=== PATIENT | female | born 1995 | race Caucasian/White ===

== ENCOUNTER 2025-03-09 16:40 | Emergency (ER) | payer MEDICAID, OTHER ==
[~2025-03-09] VITALS: Ht 165.1 cm; Wt 63.5 kg
[2025-03-09 18:06] LABS: PREGNANCY TEST URINE QUAL NEGATIVE (NEGATIVE)
[2025-03-09] MEDS ORDERED: PANTOPRAZOLE 40 MG VIAL ONE (18:12)
[2025-03-09] MEDS ORDERED: MAG HYDROX/AL HYDROX/SIMETH 30 ML UDC ONE (18:12)
[2025-03-09] MEDS ORDERED: ONDANSETRON HCL/PF 4 MG/2 ML VIAL ONE (18:12)
[2025-03-09] MEDS: ONDANSETRON HCL/PF - ER 4 MG/2 ML VIAL IV ONE (18:16)
[2025-03-09] MEDS: PANTOPRAZOLE 40 MG VIAL IV ONE (18:17)
[2025-03-09] MEDS: MAG HYDROX/AL HYDROX/SIMETH 30 ML UDC PO ONE (18:17)
[2025-03-09] MEDS: LIDOCAINE VISCOUS 2% UD 15 ML UDC MM ONE (18:18)
[2025-03-09 18:25] LABS: PLATELET COUNT (AUTO) 315 K/uL (150-450); RED BLOOD CELL COUNT(AUTO) 4.79 MIL/uL (4.0-5.2); RED CELL DISTRIBUTION WIDTH 13.3 % (11.5-15.0); WHITE BLOOD COUNT (AUTO) 8.4 K/uL (4.3-11.0)
[2025-03-09 18:33] LABS: CALCIUM, SERUM 9.0 mg/dL (8.5-10.1); CREATININE 0.8 mg/dL (0.6-1.3); SODIUM SERUM 140 mmol/L (136-145); UREA NITROGEN, BLOOD 8 mg/dL (7-18)
[2025-03-09 18:46] LABS: NT-PRO BNP 24 pg/mL (0-125)
[2025-03-09] MEDS ORDERED: PANT40TA2 PO (19:16)
[2025-03-09] MEDS ORDERED: FAMO20TA80 PO (19:16)
[2025-03-09 19:35] VITALS: BP 141/83; TEMP 98.1; O2SAT 96
== END 2025-03-09 19:36 | disposition home or self-care (01) ==
LOC: ER 16:46
DX: R07.89 Other chest pain (principal); R06.02 Shortness of breath; R11.0 Nausea
CPT/HCPCS: 99285; 96374; 71045; 96375; 93005; 85025; 80048; 85378; 84703; 36415; 84484; 83880; J2405 ×2; J2470

== ENCOUNTER 2025-03-30 19:34 | Emergency (ER) | payer OTHER ==
[~2025-03-30] VITALS: Ht 165.1 cm; Wt 66.2 kg
[~2025-03-30 19:34] MED LIST: FAMO20TA80 PO; PANT40TA2 PO
[2025-03-30] MEDS: KETOROLAC TROMETHAMINE 15 MG/ML VIAL IV ONE (21:00)
[2025-03-30] MEDS ORDERED: ONDANSETRON HCL/PF 4 MG/2 ML VIAL ONE (21:02)
[2025-03-30] MEDS ORDERED: ACETAMINOPHEN ES 500 MG TABLET ONE (21:02)
[2025-03-30] MEDS ORDERED: KETOROLAC TROMETHAMINE 15 MG/ML VIAL ONE (21:02)
[2025-03-30] MEDS ORDERED: LIDOCAINE VISCOUS 2% UD 15 ML UDC ONE (21:02)
[2025-03-30] MEDS ORDERED: MAG HYDROX/AL HYDROX/SIMETH 30 ML UDC ONE (21:02)
[2025-03-30] MEDS: IV NS 0.9% 1,000 ML BAG IV ONE (21:13)
[2025-03-30] MEDS: LIDOCAINE VISCOUS 2% UD 15 ML UDC MM ONE (21:14)
[2025-03-30] MEDS: MAG HYDROX/AL HYDROX/SIMETH 30 ML UDC PO ONE (21:14)
[2025-03-30] MEDS: ACETAMINOPHEN ES 500 MG TABLET PO ONE (21:14)
[2025-03-30] MEDS: ONDANSETRON HCL/PF 4 MG/2 ML VIAL IVP ONE (21:14)
[2025-03-30 21:19] LABS: PLATELET COUNT (AUTO) 289 K/uL (150-450); RED BLOOD CELL COUNT(AUTO) 4.75 MIL/uL (4.0-5.2); RED CELL DISTRIBUTION WIDTH 13.3 % (11.5-15.0); WHITE BLOOD COUNT (AUTO) 8.2 K/uL (4.3-11.0)
[2025-03-30 21:24] LABS: CALCIUM, SERUM 8.8 mg/dL (8.5-10.1); CREATININE 1.0 mg/dL (0.6-1.3); SODIUM SERUM 138.0 mmol/L (136-145); UREA NITROGEN, BLOOD 7.0 mg/dL (7-18)
[2025-03-30 21:29] LABS: ASPARTATE AMINOTRANSFERASE 17.0 U/L (15-37); TOTAL PROTEIN, SERUM 7.4 g/dL (6.4-8.2)
[2025-03-30 21:30] LABS: INR 0.98 (0.91-1.10)
[2025-03-30] MEDS ORDERED: PANT40TA2 PO (21:37)
[2025-03-30] MEDS ORDERED: ONDA4TAB5 PO (21:37)
[2025-03-30] MEDS ORDERED: FAMO20TA80 PO (21:37)
[2025-03-30 22:04] LABS: APPEARANCE,URINE CLEAR (CLEAR); BLOOD, URINE TRACE-INTA Ery/uL (NEGATIVE); LEUKOCYTE ESTERASE ,URINE NEGATIVE (NEGATIVE); NITRITE, URINE NEGATIVE (NEGATIVE); UGLUCOSE NEGATIVE (NEGATIVE)
[2025-03-30 22:08] LABS: ADD URINE CULTURE NO; SQUAMOUS EPITHELIAL CELL,UR 0-2 /HPF (None Seen)
[2025-03-30 22:17] LABS: PREGNANCY TEST URINE QUAL NEGATIVE (NEGATIVE)
[2025-03-30] MEDS ORDERED: FAMOTIDINE/PF INJ 20 MG/2 ML VIAL IV ONE (22:30)
[2025-03-30] MEDS: FAMOTIDINE/PF INJ 20 MG/2 ML VIAL IV ONE (22:34)
[2025-03-30 23:51] VITALS: BP 143/95; TEMP 98.2; O2SAT 98
== END 2025-03-30 23:55 | disposition home or self-care (01) ==
LOC: ER 19:37
DX: K21.9 Gastro-esophageal reflux disease without esophagitis (principal); R11.2 Nausea with vomiting, unspecified; R19.7 Diarrhea, unspecified; E78.5 Hyperlipidemia, unspecified; I51.9 Heart disease, unspecified; G89.29 Other chronic pain; F17.200 Nicotine dependence, unspecified, uncomplicated; Z86.2 Personal history of diseases of the blood and blood-forming organs and certain disorders involving the immune mechanism
CPT/HCPCS: 99284; 96374; 96375; 96361; 93005; 85025; 80048; 83690; 80076; 84703; 81001; 36415; 85730; J1885; J1308; J2405